=== PATIENT | female | born 1995 | race Hispanic/Latino ===

== ENCOUNTER 2022-12-25 17:38 | Emergency (ER) | payer OTHER ==
[~2022-12-25] VITALS: Ht 162.6 cm; Wt 89.1 kg
[2022-12-25 17:42] VITALS: O2SAT 98
[2022-12-25] MEDS ORDERED: PROBIOTIC & AC1 EACH PO (17:57)
[2022-12-25] MEDS ORDERED: LOTRIMIN AF12 GM TOP (17:57)
[2022-12-25] MEDS ORDERED: DOXYCYCLINE HY100 MG PO (17:57)
== END 2022-12-25 18:05 | disposition home or self-care (01) ==
LOC: FSED 17:42
DX: B35.3 Tinea pedis (principal); L03.115 Cellulitis of right lower limb
CPT/HCPCS: 99283